=== PATIENT | female | born 1995 | race Caucasian/White ===

== ENCOUNTER 2023-11-15 12:35 | Outpatient (CLI) | payer MEDICAID, SELFPAY ==
[2023-11-15 11:30] LABS: Vitamin B12 450 pg/mL (193-986)
[2023-11-17 12:42] LABS: Copper, Serum 101 mcg/dL (77-206)
== END 2023-11-15 12:36 | disposition home or self-care (01) ==
LOC: LBO 12:35
PROVIDERS: Visit Provider Naturopath
DX: D50.8 Other iron deficiency anemias (principal); D51.9 Vitamin B12 deficiency anemia, unspecified; Z00.01 Encounter for general adult medical examination with abnormal findings
CPT/HCPCS: 36415; 82525; 82607